=== PATIENT | female | born 1950 | race Caucasian/White ===

== ENCOUNTER 2022-10-21 07:58 | Outpatient (OUT) | payer MEDICARE, SELFPAY ==
--- NOTE | 2022-10-21 08:17 | CT_ITS ---
[address] [address] Patient Name: CESAR LLAMAS MRN: [id number] date: 1950 Sex: F Assigned Patient Location: CT Current Patient Location: CT Accession/Order Number: [id number] Exam Date: 10/21/2022 08:15 Report Date: 10/21/2022 14:43 At the request of: DILLAN DE LA GARZA Procedure: CT lung screening low-dose EXAMINATION: CT lung screening low-dose HISTORY: History OF Smoking Z87.891 COMPARISON: 10/05/2018 TECHNIQUE: Axial, Coronal, and Sagittal images were created without the administration of IV contrast material. Dose reduction techniques were achieved by using automated exposure control and/or adjustment of mA and/or kV according to patient size and/or use of iterative reconstruction technique. FINDINGS: LUNGS: Calcified tracheobronchial tree. No bronchiectasis or peribronchial thickening. Biapical pleural parenchymal opacities, scarring is favored. No significant pulmonary nodule or mass PLEURA: No mass, effusion, or pneumothorax. VASCULATURE: No abnormality. SARAH BETH: No mass or pathologic adenopathy. MEDIASTINUM: No mass or pathologic adenopathy. CARDIAC: No enlargement or pericardial effusion. Coronary atherosclerosis AORTA: No aortic aneurysm. Mild atherosclerosis CHEST WALL: No mass or axillary adenopathy BONES: No bone lesion or fracture. Rotatory levocurvature of the thoracic spine. Mild to moderate degenerative changes LIMITED ABDOMEN: 5.3 cm hypodensity at the falciform ligament measuring 12 Hounsfield units. A cyst is favored OTHER: Negative. CT/CT lung screening low-dose IMPRESSION: LUNG SCREENING: Lung-RADS Category 1 Negative. No nodules and definitely benign nodules. Continue annual screening with LDCT in 12 months. Electronically authenticated by: JANNETTE RODRÍGUEZ Date: 10/21/2022 14:43
[2022-10-21 09:45] LABS: Alanine Aminotransferase 23 U/L (14-59); Albumin Globulin Ratio 1.2; Albumin Level 3.8 g/dL (3.4-5.0); Alkaline Phosphatase 83 U/L (46-116); Aspartate Amino Transferase 18 U/L (15-37); BUN Creatinine Ratio 26.7; Bilirubin Total 0.7 mg/dL (0.2-1.0); Calcium 8.6 mg/dL (8.5-10.1); Carbon Dioxide 28.1 mmol/L (21.0-32.0); Chloride 105 mmol/L (98-107); Chol HDL Ratio 2.9; Cholesterol 167 mg/dL (<=200); Estimated GFR (African America >60 (>=60); Estimated GFR (Non-African Ame >60 (>=60); Globulin 3.2 g/dL; Glucose 96 mg/dL (74-106); HDL Cholesterol 57 mg/dL (40-60); LDL Cholesterol Calculated 92.8 mg/dL; Potassium 4.1 mmol/L (3.5-5.1); Sodium 141 mmol/L (136-145); Triglycerides 86 mg/dL (<=150); VLDL CHOLESTEROL 17.2 mg/dL
== END 2022-10-21 07:59 | disposition home or self-care (01) ==
LOC: CT 07:58
PROVIDERS: PCP Family Medicine; Visit Provider Family Medicine
DX: Z87.891 Personal history of nicotine dependence (principal); E78.00 Pure hypercholesterolemia, unspecified
CPT/HCPCS: 36415; 71271; 80053; 80061